=== PATIENT | female | born 1935 | race American Indian/Alaskan Native ===

== ENCOUNTER 2018-07-20 10:57 | Inpatient (IN) | payer MEDICARE ==
[2018-07-20 11:55] LABS: Basophils % (Auto) 0.4 % (0.0-1.8); Eosinophils % (Auto) 0.2 % (0.0-4.3); Hematocrit 34.1 % (30.3-42.9); Hemoglobin 11.2 gm/dl (10.1-14.3); Lymphocytes # (Auto) 0.7 K/mm3 (1.2-5.4); Lymphocytes % (Auto) 14.7 % (13.4-35.0); Mean Corpuscular HGB Conc 33 % (30-34); Mean Corpuscular Volume 90 fl (79-97); Monocytes # (Auto) 0.3 K/mm3 (0.0-0.8); Monocytes % (Auto) 5.3 % (0.0-7.3); Platelet Count 107 K/mm3 (140-440); Red Blood Count 3.77 M/mm3 (3.65-5.03); Red Cell Distribution Width 13.7 % (13.2-15.2)
[2018-07-20 12:03] LABS: INR 1.01 (0.87-1.13)
[2018-07-20 12:04] LABS: Partial Thromboplastin Time 20.7 Sec. (24.2-36.6)
[2018-07-20 12:09] LABS: Alanine Aminotransferase 12 units/L (7-56); Albumin 3.5 g/dL (3.9-5); BUN/Creatinine Ratio 14; Blood Urea Nitrogen 10 mg/dL (7-17); Hemolysis Index 13
--- NOTE | 2018-07-20 13:42 | Emergency Department Report ---
ED General Adult HPI - General Chief complaint: GI Bleed Stated complaint: RECTAL BLEEDING Time Seen by Provider: 07/20/18 11:21 Source: patient Mode of arrival: Ambulatory Limitations: No Limitations - History of Present Illness Initial comments: Patient presents to emergency department with a chief complaint of bright red blood per rectum that started this morning. Patient also complains of some left lower quadrant abdominal pain as well. Patient has a chest pain, shortness breath, or headache. -: Sudden Location: buttocks Radiation: non-radiation Severity scale (0 -10): 2 Quality: dull, constant Consistency: constant Improves with: none Worsens with: none Associated Symptoms: denies other symptoms Treatments Prior to Arrival: none - Related Data Allergies Allergy/AdvReac Type Severity Reaction Status Date / Time No Known Allergies Allergy Unverified 10/16/15 07:02 ED Review of Systems ROS: Stated complaint: RECTAL BLEEDING Other details as noted in HPI Comment: All other systems reviewed and negative Constitutional: denies: chills, fever Eyes: denies: eye pain, eye discharge, vision change ENT: denies: ear pain, throat pain Respiratory: denies: cough, shortness of breath, wheezing Cardiovascular: denies: chest pain, palpitations Endocrine: no symptoms reported Gastrointestinal: denies: abdominal pain, nausea, diarrhea Genitourinary: denies: urgency, dysuria, discharge Musculoskeletal: denies: back pain, joint swelling, arthralgia Skin: denies: rash, lesions Neurological: denies: headache, weakness, paresthesias Psychiatric: denies: anxiety, depression Hematological/Lymphatic: denies: easy bleeding, easy bruising ED Past Medical Hx - Past Medical History Previous Medical History?: Yes Hx Asthma: Yes - Surgical History Past Surgical History?: No - Social History Smoking Status: Never Smoker Substance Use Type: None ED Physical Exam - General Limitations: No Limitations General appearance: alert, in no apparent distress - Head Head exam: Present: atraumatic, normocephalic - Eye Eye exam: Present: normal appearance, PERRL, EOMI - ENT ENT exam: Present: mucous membranes moist - Neck Neck exam: Present: normal inspection - Respiratory Respiratory exam: Present: normal lung sounds bilaterally. Absent: respiratory distress, wheezes, rales - Cardiovascular Cardiovascular Exam: Present: regular rate, normal rhythm. Absent: systolic murmur, diastolic murmur, rubs, gallop - GI/Abdominal GI/Abdominal exam: Present: soft, normal bowel sounds. Absent: distended, tenderness - Rectal Rectal exam: Present: heme (+) stool, other (chaperoned by Nurse Roman Taveras; no hemorrhoids appreciated on exam) - Extremities Exam Extremities exam: Present: normal inspection - Back Exam Back exam: Present: normal inspection - Neurological Exam Neurological exam: Present: alert, oriented X3, CN II-XII intact. Absent: motor sensory deficit - Psychiatric Psychiatric exam: Present: normal affect, normal mood - Skin Skin exam: Present: warm, dry, intact, normal color. Absent: rash ED Course Vital Signs 07/20/18 11:07 Temperature 97.4 F L Pulse Rate 73 Respiratory 18 Rate Blood Pressure 116/64 O2 Sat by Pulse 100 Oximetry ED Medical Decision Making - Lab Data Result diagrams: 07/20/18 11:29 07/20/18 11:29 Lab Results 07/20/18 07/20/18 07/20/18 Range/Units 11:29 11:29 11:29 WBC 4.8 (4.5-11.0) K/mm3 RBC 3.77 (3.65-5.03) M/mm3 Hgb 11.2 (10.1-14.3) gm/dl Hct 34.1 (30.3-42.9) % MCV 90 (79-97) fl MCH 30 (28-32) pg MCHC 33 (30-34) % RDW 13.7 (13.2-15.2) % Plt Count 107 L (140-440) K/mm3 Lymph % (Auto) 14.7 (13.4-35.0) % [place] % (Auto) 5.3 (0.0-7.3) % Eos % (Auto) 0.2 (0.0-4.3) % Baso % (Auto) 0.4 (0.0-1.8) % Lymph # 0.7 L (1.2-5.4) K/mm3 [place] # 0.3 (0.0-0.8) K/mm3 Eos # 0.0 (0.0-0.4) K/mm3 Baso # 0.0 (0.0-0.1) K/mm3 Seg Neutrophils % 79.4 H (40.0-70.0) % Seg Neutrophils # 3.8 (1.8-7.7) K/mm3 PT 13.9 (12.2-14.9) Sec. INR 1.01 (0.87-1.13) APTT 20.7 L (24.2-36.6) Sec. Sodium 140 (137-145) mmol/L Potassium 3.9 (3.6-5.0) mmol/L Chloride 102.9 (98-107) mmol/L Carbon Dioxide 26 (22-30) mmol/L Anion Gap 15 mmol/L BUN 10 (7-17) mg/dL Creatinine 0.7 (0.7-1.2) mg/dL Estimated GFR > 60 ml/min BUN/Creatinine Ratio 14 % Glucose 143 H (65-100) mg/dL Calcium 9.0 (8.4-10.2) mg/dL Total Bilirubin 0.60 (0.1-1.2) mg/dL AST 19 (5-40) units/L ALT 12 (7-56) units/L Alkaline Phosphatase 87 (35-129) units/L Total Protein 6.1 L (6.3-8.2) g/dL Albumin 3.5 L (3.9-5) g/dL Albumin/Globulin Ratio 1.3 % Blood Type Antibody Screen 07/20/18 Range/Units 11:29 WBC (4.5-11.0) K/mm3 RBC (3.65-5.03) M/mm3 Hgb (10.1-14.3) gm/dl Hct (30.3-42.9) % MCV (79-97) fl MCH (28-32) pg MCHC (30-34) % RDW (13.2-15.2) % Plt Count (140-440) K/mm3 Lymph % (Auto) (13.4-35.0) % [place] % (Auto) (0.0-7.3) % Eos % (Auto) (0.0-4.3) % Baso % (Auto) (0.0-1.8) % Lymph # (1.2-5.4) K/mm3 [place] # (0.0-0.8) K/mm3 Eos # (0.0-0.4) K/mm3 Baso # (0.0-0.1) K/mm3 Seg Neutrophils % (40.0-70.0) % Seg Neutrophils # (1.8-7.7) K/mm3 PT (12.2-14.9) Sec. INR (0.87-1.13) APTT (24.2-36.6) Sec. Sodium (137-145) mmol/L Potassium (3.6-5.0) mmol/L Chloride (98-107) mmol/L Carbon Dioxide (22-30) mmol/L Anion Gap mmol/L BUN (7-17) mg/dL Creatinine (0.7-1.2) mg/dL Estimated GFR ml/min BUN/Creatinine Ratio % Glucose (65-100) mg/dL Calcium (8.4-10.2) mg/dL Total Bilirubin (0.1-1.2) mg/dL AST (5-40) units/L ALT (7-56) units/L Alkaline Phosphatase (35-129) units/L Total Protein (6.3-8.2) g/dL Albumin (3.9-5) g/dL Albumin/Globulin Ratio % Blood Type O POSITIVE Antibody Screen Negative - Medical Decision Making Discussed plan of care with patient Critical care attestation.: If time is entered above; I have spent that time in minutes in the direct care of this critically ill patient, excluding procedure time. ED Disposition Clinical Impression: GI bleed, Rectal bleeding Disposition: OP ADMIT IP TO THIS HOSP Is pt being admited?: No Does the pt Need Aspirin: No Condition: Fair Instructions: Gastrointestinal Bleeding (ED) Referrals: MARK NAPOLES MD [Primary Care Provider] - 3-5 Days
--- NOTE | 2018-07-20 13:46 | History and Physical Report ---
History of Present Illness Chief complaint: I keep bleeding when i go to the bathroom History of present illness: 83 YO Female with Asthma, Malnutrition presents to ED for evaluation. Pt states that she has experienced BRBPR over the past 1 day with persistent symptoms over the same time frame. Pt transported to [facility] by her family for further care and evaluation. Pt seen and evaluated in ED and found to have GI bleed. Pt denies fever, chills, CP, Palpitations, NV, productive cough, skin rash, or recent ill contacts. Pt admitted to [facility] unit. GI consulted in ED. Past History Past Medical History: other (Asthma, Malnutrition) Past Surgical History: No surgical history, Other (reviewed) Social history: single. denies: smoking, alcohol abuse, prescription drug abuse Family history: no significant family history (reviewed) Medications and Allergies Allergies Allergy/AdvReac Type Severity Reaction Status Date / Time No Known Allergies Allergy Unverified 10/16/15 07:02 Review of Systems Constitutional: no weight loss, no weight gain, no fever, no chills Ears, nose, mouth and throat: no ear pain, no ear discharge, no tinnitis, no decreased hearing Breasts: no change in shape, no swelling, no mass Cardiovascular: no chest pain, no orthopnea, no palpitations, no rapid/irregular heart beat, no edema Respiratory: no cough, no excessive sputum, no hemoptysis, no shortness of breath Gastrointestinal: diarrhea, BRBPR, no nausea, no vomiting, no change in bowel habits, no hematemesis, no loss of appetite Genitourinary Female: no pelvic pain, no flank pain, no menorrhagia, no urinary frequency, no urgency Rectal: no pain, no incontinence, no bleeding Musculoskeletal: no neck stiffness, no neck pain, no shooting arm pain, no arm numbness/tingling, no low back pain Integumentary: no rash, no pruritis, no redness, no sores, no jaundice Neurological: no transient paralysis, no paralysis, no weakness, no parathesias, no numbness, no tingling, no seizures Psychiatric: no anxiety, no memory loss, no change in sleep habits, no sleep disturbances Endocrine: no cold intolerance, no heat intolerance, no polyphagia, no excessive thirst, no polydipsia, no polyuria Hematologic/Lymphatic: no easy bruising, no easy bleeding, no lymphadenopathy, no lymphedema Allergic/Immunologic: no urticaria, no allergic rhinitis, no wheezing, no persistent infections, no angioedema Exam - Constitutional Vitals: Temp Pulse Resp BP Pulse Ox 97.4 F L 73 18 116/64 100 07/20/18 11:07 07/20/18 11:07 07/20/18 11:07 07/20/18 11:07 07/20/18 11:07 General appearance: Present: mild distress - EENT Eyes: Present: PERRL ENT: hearing intact, clear oral mucosa - Neck Neck: Present: supple, normal ROM - Respiratory Respiratory effort: normal Respiratory: bilateral: CTA - Cardiovascular Heart Sounds: Present: S1 & S2. Absent: rub, click - Extremities Extremities: pulses symmetrical, No edema Peripheral Pulses: within normal limits - Abdominal General gastrointestinal: Present: soft, non-tender, non-distended, normal bowel sounds Female genitourinary: Present: normal - Integumentary Integumentary: Present: clear, warm, dry - Musculoskeletal Musculoskeletal: gait normal, strength equal bilaterally - Psychiatric Psychiatric: appropriate mood/affect, intact judgment & insight - Neurologic Neurologic: CNII-XII intact, moves all extremities Results - Labs CBC & Chem 7: 07/20/18 11:29 07/20/18 11:29 Labs: Abnormal lab results 07/20/18 07/20/18 07/20/18 Range/Units 11:29 11:29 11:29 Plt Count 107 L (140-440) K/mm3 Lymph # 0.7 L (1.2-5.4) K/mm3 Seg Neutrophils % 79.4 H (40.0-70.0) % APTT 20.7 L (24.2-36.6) Sec. Glucose 143 H (65-100) mg/dL Total Protein 6.1 L (6.3-8.2) g/dL Albumin 3.5 L (3.9-5) g/dL Assessment and Plan - Patient Problems (1) GI bleed Current Visit: Yes Status: Acute Qualifiers: GI bleed type/associated pathology: anorectal hemorrhage Qualified Code(s): K62.5 - Hemorrhage of anus and rectum Plan to address problem: Admit to [facility] unit, Serial CBC, No transfusion at this time, hgb stable. PPI therapy, GI consulted in ED for endoscopy (2) DVT prophylaxis Current Visit: Yes Status: Acute Plan to address problem: SCD to BLE while in bed.
[2018-07-20] MEDS ORDERED: TYLENOL PO PRN (14:25)
[2018-07-20] MEDS ORDERED: ZOFRAN IV PRN (14:25)
[2018-07-20] MEDS ORDERED: PROVENTIL IH PRN (14:25)
[2018-07-20] MEDS ORDERED: SODIUM CHLORIDE FLUSH SYRINGE 10 ML IV PRN (14:25)
--- NOTE | 2018-07-20 15:02 | Cat Scan Report ---
FINAL REPORT PROCEDURE: CT ABDOMEN PELVIS WO CON TECHNIQUE: Computerized axial tomography of the abdomen and pelvis was performed without intravenous contrast. This study is performed without intravascular contrast material and its sensitivity for ab dominal and pelvic pathology, including neoplasms, inflammation, abscess, free fluid, thrombosis, art erial dissection and infarction, is reduced compared with a contrast enhanced study. HISTORY: rectal bleeding and abdminal pain COMPARISON: No prior studies are available for comparison. FINDINGS: Lower Lung harris: There are noncalcified nodular densities seen in the right lower lobe. Three appea r to be present, the largest measures 10.4 millimeters and has slightly spiculated margins. The other 2 measure 5.5 millimeters and 4 millimeters in size. There is an additional 3 millimeter noncalcifie d nodule anteriorly inferiorly in the right upper lobe. Minimal dependent atelectasis is visualized. Calcifications visualized in the coronary arteries indicating atherosclerotic disease. Upper Abdomen: There are multiple low-density nodules scattered in the liver. Without IV contrast the se are difficult to characterize. They may represent cysts. Other low-density nodules probably less l ikely. These measure up to 1.8 centimeters in size. The liver is otherwise unremarkable. There is inc reased density dependently in the gallbladder. I suspect there are multiple small layering gallstones . The gallbladder is otherwise unremarkable. The adrenal glands, the pancreas and the spleen are unre markable. Kidneys, Ureters and Urinary bladder: There is a nonobstructing 5 millimeter x 6 millimeter calculus in the lower 3rd of the left kidney. The kidneys, ureters and urinary bladder otherwise are unremarka ble. Retroperitoneum: Atherosclerotic changes are seen in the abdominal aorta. No aneurysm is visualized. Nonspecific subcentimeter lymph nodes are seen in the retroperitoneum. No pathologically enlarged lym ph nodes are identified. Bowel: There is moderate diverticulosis in the descending colon without evidence of diverticulitis. There is moderate diverticulosis in the hepatic flexure is well. There also appears to be mild diverticulosis in the region of the cecum. No inflammatory changes are seen in the right lower quadrant that would suggest appendicitis. Reproductive organs: Uterus is surgically absent. No abnormal adnexal masses are seen. Other: Degenerative changes visualized in the lumbar spine, thoracic spine and sacrum. No acute bony abnormalities are visualized. IMPRESSION: Moderate areas of diverticulosis seen in the colon as described above. I do not see definite evidence of diverticulitis. If clinically indicated nuclear medicine bleeding scan could be performed to eval uate the site of intestinal bleeding. Several noncalcified nodular densities are seen in the lung bases as described the largest measuring just over 1 centimeter. Malignancy cannot be excluded. Consider CT of the entire chest for further ev aluation. Atherosclerosis coronary arteries. Multiple low-density nodules seen in the liver as described. These may represent cysts although confi rmation with ultrasound would be helpful. Prior hysterectomy..
[2018-07-20] MEDS: PROTONIX IV SCH ×2 (16:01→22:52)
[2018-07-20] MEDS ORDERED: PROTONIX IV ONE (16:45)
[2018-07-20] MEDS: SODIUM CHLORIDE FLUSH SYRINGE 10 ML IV SCH (22:52)
[2018-07-21 06:02] LABS: Basophils % (Auto) 0.6 % (0.0-1.8); Eosinophils % (Auto) 0.7 % (0.0-4.3); Hematocrit 28.1 % (30.3-42.9); Hemoglobin 9.5 gm/dl (10.1-14.3); Lymphocytes # (Auto) 1.2 K/mm3 (1.2-5.4); Lymphocytes % (Auto) 35.7 % (13.4-35.0); Mean Corpuscular HGB Conc 34 % (30-34); Mean Corpuscular Volume 90 fl (79-97); Monocytes # (Auto) 0.3 K/mm3 (0.0-0.8); Platelet Count 100 K/mm3 (140-440); Red Blood Count 3.13 M/mm3 (3.65-5.03); Red Cell Distribution Width 13.9 % (13.2-15.2)
[2018-07-21] MEDS: SODIUM CHLORIDE FLUSH SYRINGE 10 ML IV SCH ×2 (09:24→22:25)
[2018-07-21] MEDS: PROTONIX IV SCH ×2 (09:24→22:24)
--- NOTE | 2018-07-21 10:11 | Gastroenterology Consultation ---
Addendum entered and electronically signed by MARCI GARCIA MD 07/21/18 16:13: Patient seen and examined on 07/21/2018. 83 yo female with prior h/o diverticular bleed admitted for rectal bleeding. No additional bleeding episode. Will monitor H/H and for any signs of recurrent bleeding. Original Note: History of Present Illness - Reason for Consult Consult date: 07/21/18 GI bleed Requesting physician: DEBRA ESCOBAR - History of Present Illness Patient is a 83 y/o female with PMH of GERD, HTN, anemia, and glaucoma who prese nted to ED with c/o rectal bleeding to which GI has been consulted. This morning patient was sitting up in bed eating breakfast w/o acute distress. She reports an acute on set of rectal bleeding yesterday with bright red blood x 2 episodes. No active signs of bleeding this am. No hematemesis or melena. Denies fever, CP, SOB, dizziness, wt loss, abd pain, N/V, diarrhea, or constipation. Patient is previously known to our service with a hx of recurrent diverticular bleeding requiring multiple hospitalizations in the past with last one being in 2017 at [facility]. She underwent a colonoscopy at that time by Dr. Durand that showed pancolonic diverticulosis and hemorrhoids. Had a pill cam in 2016 that showed a single small diverticulum in the mid to distal small bowel, otherwise normal. Past History Past Medical History: anemia, GERD, hypertension, other (Asthma, Malnutrition, glaucoma, recurrent diverticular bleeding ) Past Surgical History: No surgical history, Other Social history: single. denies: smoking, alcohol abuse, prescription drug abuse Family history: no significant family history (reviewed) Medications and Allergies Allergies Allergy/AdvReac Type Severity Reaction Status Date / Time No Known Allergies Allergy Unverified 10/16/15 07:02 Home Medications Medication Instructions Recorded Confirmed Last Taken Type Losartan Potassium [Cozaar] 50 mg PO DAILY 07/20/18 07/20/18 Unknown History Pantoprazole [Protonix] 40 mg PO BID 07/20/18 07/20/18 Unknown History Active Meds: Active Medications Acetaminophen (Tylenol) 650 mg PO Q4H PRN PRN Reason: Pain MILD(1-3)/Fever >100.5/RAI Albuterol (Proventil) 2.5 mg IH Q4HRT PRN PRN Reason: Shortness Of Breath Ondansetron HCl (Zofran) 4 mg IV Q8H PRN PRN Reason: Nausea And Vomiting Pantoprazole Sodium (Protonix) 40 mg IV BID [facility], [facility]1983 Last Admin: 07/21/18 09:24 Dose: 40 mg Documented by: Sodium Chloride (Sodium Chloride Flush Syringe 10 Ml) 10 ml IV BID [facility] Last Admin: 07/21/18 09:24 Dose: 10 ml Documented by: Sodium Chloride (Sodium Chloride Flush Syringe 10 Ml) 10 ml IV PRN PRN PRN Reason: LINE FLUSH medications reviewed/updated as required Review of Systems - Review of Systems All systems: negative Gastrointestinal: BRBPR Exam - Constitutional Vital Signs: Temp Pulse Resp BP Pulse Ox 98.0 F 61 18 129/62 100 07/21/18 05:49 07/21/18 05:49 07/21/18 08:37 07/21/18 05:49 07/21/18 05:49 General appearance: no acute distress - EENT Eyes: PERRL, EOM intact ENT: hearing intact - Respiratory Respiratory: bilateral: CTA - Cardiovascular Rhythm: regular Heart Sounds: Present: S1 & S2 - Gastrointestinal General gastrointestinal: Present: soft, non-tender, non-distended, normal bowel sounds - Neurologic Neurological: alert and oriented x3 - Labs CBC & Chem 7: 07/21/18 04:36 07/20/18 11:29 Lab Results: Laboratory Results - last 24 hr 07/20/18 07/20/18 07/20/18 11:29 11:29 11:29 WBC 4.8 RBC 3.77 Hgb 11.2 Hct 34.1 MCV 90 MCH 30 MCHC 33 RDW 13.7 Plt Count 107 L Lymph % (Auto) 14.7 [place] % (Auto) 5.3 Eos % (Auto) 0.2 Baso % (Auto) 0.4 Lymph # 0.7 L [place] # 0.3 Eos # 0.0 Baso # 0.0 Seg Neutrophils % 79.4 H Seg Neutrophils # 3.8 PT 13.9 INR 1.01 APTT 20.7 L Sodium 140 Potassium 3.9 Chloride 102.9 Carbon Dioxide 26 Anion Gap 15 BUN 10 Creatinine 0.7 Estimated GFR > 60 BUN/Creatinine Ratio 14 Glucose 143 H Calcium 9.0 Total Bilirubin 0.60 AST 19 ALT 12 Alkaline Phosphatase 87 Total Protein 6.1 L Albumin 3.5 L Albumin/Globulin Ratio 1.3 Blood Type Antibody Screen 07/20/18 07/21/18 11:29 04:36 WBC 3.4 L RBC 3.13 L Hgb 9.5 L Hct 28.1 L D MCV 90 MCH 30 MCHC 34 RDW 13.9 Plt Count 100 L Lymph % (Auto) 35.7 H [place] % (Auto) 9.0 H Eos % (Auto) 0.7 Baso % (Auto) 0.6 Lymph # 1.2 [place] # 0.3 Eos # 0.0 Baso # 0.0 Seg Neutrophils % 54.0 Seg Neutrophils # 1.9 PT INR APTT Sodium Potassium Chloride Carbon Dioxide Anion Gap BUN Creatinine Estimated GFR BUN/Creatinine Ratio Glucose Calcium Total Bilirubin AST ALT Alkaline Phosphatase Total Protein Albumin Albumin/Globulin Ratio Blood Type O POSITIVE Antibody Screen Negative Assessment and Plan 1.GI bleed 2.rectal bleeding 3.hx of recurrent diverticular bleeding -H/H 9.5/28.1 -continue to monitor H/H and transfuse as needed -patient reports an acute onset of rectal bleeding with bright red blood x 2 episodes yesterday. No hematemeis, melena, abd pain, or N/V. -currently HD stable with no active signs of bleeding today -last colonoscopy in 2016 at [facility] by Dr. Durand that showed pancolonic diverticulosis and hemorrhoids -pill cam in 2016 showed a single small diverticulum in the mid to distal small bowel, otherwise normal -etiology-likely diverticular in nature given history -no plans for a repeat colonoscopy at this time, recommend conservative management since bleeding seems to be resolving -recommend stat CTA vs bleeding scan if bleeding reoccurs -continue PPI and supportive care -if no further signs of bleeding and labs are stable in am, okay to be d/c per GI standpoint with f/u in clinic
--- NOTE | 2018-07-21 14:06 | Progress Note ---
Assessment and Plan Assessment and plan: GI bleed, probably diverticular bleed -No bleeding this a.m. -H/H stable, will monitor and transfuse as needed -cont Protonix -GI is not planning on further investigative testing. -CTA versus bleeding scan recommended if bleeding re-occurs HTN -controlled Disposition: For discharge in a.m. if H/H remain stable History Interval history: Pt has no new complaints. She has not had any rectal bleed this am. Hospitalist Physical - Constitutional Vitals: Temp Pulse Resp BP Pulse Ox 98.6 F 70 18 150/67 98 07/21/18 12:07 07/21/18 12:07 07/21/18 12:07 07/21/18 12:07 07/21/18 12:07 General appearance: Present: no acute distress - EENT Eyes: Present: PERRL, EOM intact ENT: hearing intact, clear oral mucosa - Neck Neck: Present: supple - Respiratory Respiratory effort: normal Respiratory: bilateral: CTA - Cardiovascular Rhythm: regular Heart Sounds: Present: S1 & S2 - Extremities Extremities: No edema - Abdominal General gastrointestinal: soft, non-tender, non-distended, normal bowel sounds - Neurologic Neurologic: CNII-XII intact Results - Labs CBC & Chem 7: 07/21/18 04:36 07/20/18 11:29 Labs: Laboratory Last Values WBC 3.4 K/mm3 (4.5-11.0) L 07/21/18 04:36 RBC 3.13 M/mm3 (3.65-5.03) L 07/21/18 04:36 Hgb 9.5 gm/dl (10.1-14.3) L 07/21/18 04:36 Hct 28.1 % (30.3-42.9) L D 07/21/18 04:36 MCV 90 fl (79-97) 07/21/18 04:36 MCH 30 pg (28-32) 07/21/18 04:36 MCHC 34 % (30-34) 07/21/18 04:36 RDW 13.9 % (13.2-15.2) 07/21/18 04:36 Plt Count 100 K/mm3 (140-440) L 07/21/18 04:36 Lymph % (Auto) 35.7 % (13.4-35.0) H 07/21/18 04:36 [place] % (Auto) 9.0 % (0.0-7.3) H 07/21/18 04:36 Eos % (Auto) 0.7 % (0.0-4.3) 07/21/18 04:36 Baso % (Auto) 0.6 % (0.0-1.8) 07/21/18 04:36 Lymph # 1.2 K/mm3 (1.2-5.4) 07/21/18 04:36 [place] # 0.3 K/mm3 (0.0-0.8) 07/21/18 04:36 Eos # 0.0 K/mm3 (0.0-0.4) 07/21/18 04:36 Baso # 0.0 K/mm3 (0.0-0.1) 07/21/18 04:36 Seg Neutrophils % 54.0 % (40.0-70.0) 07/21/18 04:36 Seg Neutrophils # 1.9 K/mm3 (1.8-7.7) 07/21/18 04:36 PT 13.9 Sec. (12.2-14.9) 07/20/18 11:29 INR 1.01 (0.87-1.13) 07/20/18 11:29 APTT 20.7 Sec. (24.2-36.6) L 07/20/18 11:29 Sodium 140 mmol/L (137-145) 07/20/18 11:29 Potassium 3.9 mmol/L (3.6-5.0) 07/20/18 11:29 Chloride 102.9 mmol/L (98-107) 07/20/18 11:29 Carbon Dioxide 26 mmol/L (22-30) 07/20/18 11:29 Anion Gap 15 mmol/L 07/20/18 11:29 BUN 10 mg/dL (7-17) 07/20/18 11:29 Creatinine 0.7 mg/dL (0.7-1.2) 07/20/18 11:29 Estimated GFR > 60 ml/min 07/20/18 11:29 BUN/Creatinine Ratio 14 % 07/20/18 11:29 Glucose 143 mg/dL (65-100) H 07/20/18 11:29 Calcium 9.0 mg/dL (8.4-10.2) 07/20/18 11:29 Total Bilirubin 0.60 mg/dL (0.1-1.2) 07/20/18 11:29 AST 19 units/L (5-40) 07/20/18 11:29 ALT 12 units/L (7-56) 07/20/18 11:29 Alkaline Phosphatase 87 units/L (35-129) 07/20/18 11:29 Total Protein 6.1 g/dL (6.3-8.2) L 07/20/18 11:29 Albumin 3.5 g/dL (3.9-5) L 07/20/18 11:29 Albumin/Globulin Ratio 1.3 % 07/20/18 11:29 Blood Type O POSITIVE 07/20/18 11:29 Antibody Screen Negative 07/20/18 11:29
[2018-07-22 06:34] LABS: Hematocrit 28.9 % (30.3-42.9); Hemoglobin 9.7 gm/dl (10.1-14.3); Mean Corpuscular HGB Conc 33 % (30-34); Mean Corpuscular Volume 90 fl (79-97); Red Blood Count 3.22 M/mm3 (3.65-5.03); Red Cell Distribution Width 13.9 % (13.2-15.2)
[2018-07-22 06:52] LABS: Platelet Count 95 K/mm3 (140-440)
[2018-07-22] MEDS ORDERED: FLUSH HEPARIN IV ONE (08:17)
--- NOTE | 2018-07-22 10:33 | Gastroenterology Progress Note ---
Addendum entered and electronically signed by MARCI GARCIA MD 07/22/18 15:12: Patient seen and examined on 07/22/2018. Agree with A/P as stated. Patient reports continued rectal bleeding overnight. H/H stable Bleeding scan was negative. May be old blood likely diverticular bleed. Monitor H/H. Will follow. Original Note: Assessment and Plan 1.GI bleed 2.rectal bleeding 3.hx of recurrent diverticular bleeding -H/H 9.7/28.9-stable -continue to monitor H/H and transfuse as needed -patient/nursing report multiple episodes of rectal bleeding overnight and this am -[place] [facility] [place] that showed pancolonic diverticulosis and hemorrhoids -pill cam in 2015 showed a single small diverticulum in the mid to distal small bowel, otherwise normal -etiology-likely diverticular in nature given history -clinically, patient is HD stable w/o abd pain or N/V. -repeat H/H -stat bleeding scan -if positive, recommend IR consult for possible embolization -continue PPI and supportive care -will follow Subjective Date of service: 07/22/18 Principal diagnosis: rectal bleeding Interval history: No acute distress. Reports multiple episodes of rectal bleeding overnight and this am. Denies abd pain or N/V. Objective - Constitutional Vitals: Temp Pulse Resp BP Pulse Ox 98.2 F 62 20 136/65 98 07/22/18 05:20 07/22/18 05:20 07/22/18 05:20 07/22/18 05:20 07/22/18 05:20 General appearance: no acute distress - Respiratory Respiratory: bilateral: CTA - Cardiovascular Rhythm: regular Heart Sounds: Present: S1 & S2 - Gastrointestinal General gastrointestinal: Present: soft, non-tender, non-distended, normal bowel sounds - Labs CBC & Chem 7: 07/22/18 05:55 07/20/18 11:29 Labs: Laboratory Results - last 24 hr 07/22/18 05:55 WBC 3.0 L RBC 3.22 L Hgb 9.7 L Hct 28.9 L MCV 90 MCH 30 MCHC 33 RDW 13.9 Plt Count 95 L
--- NOTE | 2018-07-22 11:25 | Nuclear Medicine Report ---
BLEEDING SCAN: History: Rectal bleeding, diverticulosis. Standard distribution of radiotracer is noted. No enteric activity to suggest gastrointestinal bleeding is noted. IMPRESSION: Normal bleeding scan. No evidence for active bleeding at the time of study.
[2018-07-22 11:43] LABS: Hematocrit 28.7 % (30.3-42.9); Hemoglobin 9.7 gm/dl (10.1-14.3)
[2018-07-22] MEDS: PROTONIX PO SCH ×2 (13:15→21:00)
[2018-07-22] MEDS: SODIUM CHLORIDE FLUSH SYRINGE 10 ML IV SCH ×2 (13:15→20:59)
--- NOTE | 2018-07-22 14:30 | Progress Note ---
Assessment and Plan Assessment and plan: GI bleed, probably diverticular bleed -recurrent rectal bleed this a.m. -cont Protonix -bleeding scan neg for active bleeding -GI following Anemia of acute loss -H/H stable, will monitor and transfuse as needed Mild protein calorie malnutrition evidenced by BMI of 19.7 and albumin of 3.5 -Dietitian consulted HTN -controlled Disposition: For discharge when cleared by GI History Interval history: Pt had another rectal bleed this morning Hospitalist Physical - Constitutional Vitals: Temp Pulse Resp BP Pulse Ox 98.2 F 62 20 136/65 98 07/22/18 05:20 07/22/18 05:20 07/22/18 05:20 07/22/18 05:20 07/22/18 05:20 General appearance: Present: no acute distress - EENT Eyes: Present: PERRL, EOM intact ENT: hearing intact, clear oral mucosa - Neck Neck: Present: supple - Respiratory Respiratory effort: normal Respiratory: bilateral: CTA - Cardiovascular Rhythm: regular Heart Sounds: Present: S1 & S2 - Extremities Extremities: No edema - Abdominal General gastrointestinal: soft, non-tender, non-distended, normal bowel sounds - Neurologic Neurologic: CNII-XII intact Results - Labs CBC & Chem 7: 07/22/18 09:35 07/20/18 11:29 Labs: Laboratory Last Values WBC 3.0 K/mm3 (4.5-11.0) L 07/22/18 05:55 RBC 3.22 M/mm3 (3.65-5.03) L 07/22/18 05:55 Hgb 9.7 gm/dl (10.1-14.3) L 07/22/18 09:35 Hct 28.7 % (30.3-42.9) L 07/22/18 09:35 MCV 90 fl (79-97) 07/22/18 05:55 MCH 30 pg (28-32) 07/22/18 05:55 MCHC 33 % (30-34) 07/22/18 05:55 RDW 13.9 % (13.2-15.2) 07/22/18 05:55 Plt Count 95 K/mm3 (140-440) L 07/22/18 05:55 Lymph % (Auto) 35.7 % (13.4-35.0) H 07/21/18 04:36 [place] % (Auto) 9.0 % (0.0-7.3) H 07/21/18 04:36 Eos % (Auto) 0.7 % (0.0-4.3) 07/21/18 04:36 Baso % (Auto) 0.6 % (0.0-1.8) 07/21/18 04:36 Lymph # 1.2 K/mm3 (1.2-5.4) 07/21/18 04:36 [place] # 0.3 K/mm3 (0.0-0.8) 07/21/18 04:36 Eos # 0.0 K/mm3 (0.0-0.4) 07/21/18 04:36 Baso # 0.0 K/mm3 (0.0-0.1) 07/21/18 04:36 Seg Neutrophils % 54.0 % (40.0-70.0) 07/21/18 04:36 Seg Neutrophils # 1.9 K/mm3 (1.8-7.7) 07/21/18 04:36 PT 13.9 Sec. (12.2-14.9) 07/20/18 11:29 INR 1.01 (0.87-1.13) 07/20/18 11:29 APTT 20.7 Sec. (24.2-36.6) L 07/20/18 11:29 Sodium 140 mmol/L (137-145) 07/20/18 11:29 Potassium 3.9 mmol/L (3.6-5.0) 07/20/18 11:29 Chloride 102.9 mmol/L (98-107) 07/20/18 11:29 Carbon Dioxide 26 mmol/L (22-30) 07/20/18 11:29 Anion Gap 15 mmol/L 07/20/18 11:29 BUN 10 mg/dL (7-17) 07/20/18 11:29 Creatinine 0.7 mg/dL (0.7-1.2) 07/20/18 11:29 Estimated GFR > 60 ml/min 07/20/18 11:29 BUN/Creatinine Ratio 14 % 07/20/18 11:29 Glucose 143 mg/dL (65-100) H 07/20/18 11:29 Calcium 9.0 mg/dL (8.4-10.2) 07/20/18 11:29 Total Bilirubin 0.60 mg/dL (0.1-1.2) 07/20/18 11:29 AST 19 units/L (5-40) 07/20/18 11:29 ALT 12 units/L (7-56) 07/20/18 11:29 Alkaline Phosphatase 87 units/L (35-129) 07/20/18 11:29 Total Protein 6.1 g/dL (6.3-8.2) L 07/20/18 11:29 Albumin 3.5 g/dL (3.9-5) L 07/20/18 11:29 Albumin/Globulin Ratio 1.3 % 07/20/18 11:29 Blood Type O POSITIVE 07/20/18 11:29 Antibody Screen Negative 07/20/18 11:29
[2018-07-23] MEDS: PROTONIX PO SCH ×2 (09:48→22:39)
[2018-07-23] MEDS: SODIUM CHLORIDE FLUSH SYRINGE 10 ML IV SCH ×2 (09:48→22:40)
[2018-07-23 12:35] LABS: Hematocrit 29.8 % (30.3-42.9); Hemoglobin 10.1 gm/dl (10.1-14.3); Mean Corpuscular HGB Conc 34 % (30-34); Mean Corpuscular Volume 91 fl (79-97); Platelet Count 111 K/mm3 (140-440); Red Blood Count 3.29 M/mm3 (3.65-5.03); Red Cell Distribution Width 13.9 % (13.2-15.2)
--- NOTE | 2018-07-23 12:44 | Event Note ---
Date: 07/23/18 Contacted regarding GI bleeding. GI bleeding scan negative. If rebleeds, consider repeating GI bleeding scan. Alternatively, could consider multiphase CT abdomen and pelvis (noncontrast, arterial, venous, delayed).
--- NOTE | 2018-07-23 13:06 | Gastroenterology Progress Note ---
Assessment and Plan 1. Hematochezia - neg bleeding scan; no signs of further bleeding last couple days with stable H/H. suspect diverticular bleed which has resolved. tolerating clears. can be discharged from gi stand point if no further bleeding today and labs stable. advance diet as tolerated. Subjective Date of service: 07/23/18 Principal diagnosis: rectal bleeding Interval history: pt seen and examined; no further bleeding episodes since yesterday morning (none overnight or today); H/H stable. pt tolerating liquids and denies abd pain Objective - Constitutional Vitals: Temp Pulse Resp BP Pulse Ox 98.3 F 68 20 136/63 98 07/23/18 05:11 07/23/18 05:11 07/23/18 05:11 07/23/18 05:11 07/23/18 05:11 General appearance: no acute distress - Respiratory Respiratory effort: normal Respiratory: bilateral: CTA - Cardiovascular Rhythm: regular Heart Sounds: Present: S1 & S2 - Gastrointestinal General gastrointestinal: Present: soft, non-tender, non-distended - Psychiatric Psychiatric: appropriate mood/affect - Labs CBC & Chem 7: 07/23/18 12:04 07/20/18 11:29 Labs: Laboratory Results - last 24 hr 07/23/18 12:04 WBC 4.2 L RBC 3.29 L Hgb 10.1 Hct 29.8 L MCV 91 MCH 31 MCHC 34 RDW 13.9 Plt Count 111 L
--- NOTE | 2018-07-23 14:24 | Progress Note ---
Assessment and Plan Assessment and plan: GI bleed, probably diverticular bleed -No reported bleeding today -cont Protonix -bleeding scan neg for active bleeding -GI recommended discharge if patient has no further bleeding today Anemia of acute loss -H/H stable -will monitor and transfuse as needed Mild protein calorie malnutrition -Dietitian following HTN -controlled Thrombocytopenia, probably chronic -Stable Disposition: For discharge in a.m. if clinically stable History Interval history: The patient reported no bleeding today. Hospitalist Physical - Constitutional Vitals: Temp Pulse Resp BP Pulse Ox 98.3 F 68 20 136/63 98 07/23/18 05:11 07/23/18 05:11 07/23/18 05:11 07/23/18 05:11 07/23/18 05:11 General appearance: Present: no acute distress - EENT Eyes: Present: PERRL, EOM intact ENT: hearing intact, clear oral mucosa - Neck Neck: Present: supple - Respiratory Respiratory effort: normal Respiratory: bilateral: CTA - Cardiovascular Rhythm: regular Heart Sounds: Present: S1 & S2 - Extremities Extremities: No edema - Abdominal General gastrointestinal: soft, non-tender, non-distended, normal bowel sounds - Neurologic Neurologic: CNII-XII intact Results - Labs CBC & Chem 7: 07/23/18 12:04 07/20/18 11:29 Labs: Laboratory Last Values WBC 4.2 K/mm3 (4.5-11.0) L 07/23/18 12:04 RBC 3.29 M/mm3 (3.65-5.03) L 07/23/18 12:04 Hgb 10.1 gm/dl (10.1-14.3) 07/23/18 12:04 Hct 29.8 % (30.3-42.9) L 07/23/18 12:04 MCV 91 fl (79-97) 07/23/18 12:04 MCH 31 pg (28-32) 07/23/18 12:04 MCHC 34 % (30-34) 07/23/18 12:04 RDW 13.9 % (13.2-15.2) 07/23/18 12:04 Plt Count 111 K/mm3 (140-440) L 07/23/18 12:04 Lymph % (Auto) 35.7 % (13.4-35.0) H 07/21/18 04:36 [place] % (Auto) 9.0 % (0.0-7.3) H 07/21/18 04:36 Eos % (Auto) 0.7 % (0.0-4.3) 07/21/18 04:36 Baso % (Auto) 0.6 % (0.0-1.8) 07/21/18 04:36 Lymph # 1.2 K/mm3 (1.2-5.4) 07/21/18 04:36 [place] # 0.3 K/mm3 (0.0-0.8) 07/21/18 04:36 Eos # 0.0 K/mm3 (0.0-0.4) 07/21/18 04:36 Baso # 0.0 K/mm3 (0.0-0.1) 07/21/18 04:36 Seg Neutrophils % 54.0 % (40.0-70.0) 07/21/18 04:36 Seg Neutrophils # 1.9 K/mm3 (1.8-7.7) 07/21/18 04:36 PT 13.9 Sec. (12.2-14.9) 07/20/18 11:29 INR 1.01 (0.87-1.13) 07/20/18 11:29 APTT 20.7 Sec. (24.2-36.6) L 07/20/18 11:29 Sodium 140 mmol/L (137-145) 07/20/18 11:29 Potassium 3.9 mmol/L (3.6-5.0) 07/20/18 11:29 Chloride 102.9 mmol/L (98-107) 07/20/18 11:29 Carbon Dioxide 26 mmol/L (22-30) 07/20/18 11:29 Anion Gap 15 mmol/L 07/20/18 11:29 BUN 10 mg/dL (7-17) 07/20/18 11:29 Creatinine 0.7 mg/dL (0.7-1.2) 07/20/18 11:29 Estimated GFR > 60 ml/min 07/20/18 11:29 BUN/Creatinine Ratio 14 % 07/20/18 11:29 Glucose 143 mg/dL (65-100) H 07/20/18 11:29 Calcium 9.0 mg/dL (8.4-10.2) 07/20/18 11:29 Total Bilirubin 0.60 mg/dL (0.1-1.2) 07/20/18 11:29 AST 19 units/L (5-40) 07/20/18 11:29 ALT 12 units/L (7-56) 07/20/18 11:29 Alkaline Phosphatase 87 units/L (35-129) 07/20/18 11:29 Total Protein 6.1 g/dL (6.3-8.2) L 07/20/18 11:29 Albumin 3.5 g/dL (3.9-5) L 07/20/18 11:29 Albumin/Globulin Ratio 1.3 % 07/20/18 11:29 Blood Type O POSITIVE 07/20/18 11:29 Antibody Screen Negative 07/20/18 11:29 Nutrition/Malnutrition Assess - Dietary Evaluation Nutrition/Malnutrition Findings: Nutrition Notes Start: 07/23/18 13:06 Freq: Status: Active Protocol: Document 07/23/18 13:06 CAMILLA (Rec: 07/23/18 13:15 CAMILLA [email or web address] [email or web address]) Nutrition Notes Need for Assessment generated from: MD Order Initial or Follow up Assessment Other Pertinent Diagnosis GIB Current Diet Cl liq Labs/Tests Reviewed Pertinent Medications Reviewed Height 5 ft 4 in Weight 45.8 kg [place] Body Weight (kg) 54.54 BMI 17.3 Weight change and time frame Current wt obtained from bed scale Weight Status Underweight Subjective/Other Information RD consulted for malnutrition. 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 MD reports no further bleeding. Will advance diet as tolerated. Pt tolerating cl liq diet. Burn Absent Trauma Absent #1 Nutrition Diagnosis Predicted suboptimal energy intake Etiology advanced age, GIB As Evidenced by Signs and Symptoms pt pleasantly confused at time of assessment; says she usually takes small bites of food; pt underweight Is patient on ventilator? No Is Patient Ambulatory and/or Out of Bed Yes REE-(Person-St. Jeor-ambulatory/OOB) [ 1160.900 NUTR.MSJOOB] Kcal/Kg value to use for calculation 35 Approximate Energy Requirements Using 1603 kcal/Kg Calculation Used for Recommendations Kcal/kg Additional Notes Pro needs 1.2-1.5g/k-69g/ day Fluid needs 1ml/kcal Nutrition Intervention Change Diet Order: Advance diet when medically feasible Goal #1 Continued PO tolerance Goal #2 Diet advancement to meet nutrient needs Goal #3 Wt maintenance and/or gain Anticipated Discharge Needs: Unable to determine at this time Follow-Up By: 07/25/18 Additional Comments F/u: diet advancement, need for ONS
[2018-07-24 07:51] LABS: Hematocrit 28.3 % (30.3-42.9); Hemoglobin 9.3 gm/dl (10.1-14.3)
[2018-07-24] MEDS: PROTONIX PO SCH (10:01)
[2018-07-24] MEDS: SODIUM CHLORIDE FLUSH SYRINGE 10 ML IV SCH (10:01)
--- NOTE | 2018-07-24 10:55 | Gastroenterology Progress Note ---
Assessment and Plan 1. Hematochezia - neg bleeding scan; H/H stable without further bleeding episodes for a couple days. likely resolved diverticular bleed. okay for d/c from gi stand point. will sign off, please call as needed. Subjective Date of service: 07/24/18 Principal diagnosis: rectal bleeding Interval history: pt seen and examined. no bleeding episodes since seen yesterday Objective - Constitutional Vitals: Temp Pulse Resp BP Pulse Ox 98.2 F 76 18 169/78 100 07/24/18 05:52 07/24/18 05:52 07/24/18 05:52 07/24/18 05:52 07/24/18 05:52 General appearance: no acute distress - Respiratory Respiratory effort: normal Respiratory: bilateral: CTA - Cardiovascular Rhythm: regular Heart Sounds: Present: S1 & S2 - Gastrointestinal General gastrointestinal: Present: soft, non-tender, non-distended - Psychiatric Psychiatric: appropriate mood/affect - Labs CBC & Chem 7: 07/24/18 06:52 07/20/18 11:29 Labs: Laboratory Results - last 24 hr 07/23/18 07/24/18 12:04 06:52 WBC 4.2 L RBC 3.29 L Hgb 10.1 9.3 L Hct 29.8 L 28.3 L MCV 91 MCH 31 MCHC 34 RDW 13.9 Plt Count 111 L
[2018-07-24 11:48] VITALS: BP 138/61
--- NOTE | 2018-07-26 01:47 | Discharge Summary ---
Providers - Providers Date of Admission: 07/20/18 14:29 Date of discharge: 07/24/18 Attending physician: COREEN MONREAL 07/20/18 14:51 Consult to Physician [CONS] Routine Comment: Consulting Provider: KENDRICK CHASE Physician Instructions: Reason For Exam: gi bleed 07/22/18 14:38 Consult to Dietitian/Nutrition [CONS] Routine Physician Instructions: Reason For Exam: Reason for Consult: Malnutrition Primary care physician: MARK NAPOLES MD Hospitalization Reason for admission: GI bleed, probably diverticular bleed Condition: Fair Pertinent studies: CT abdomen and pelvis: Diverticulosis without diverticulitis, Multiple liver cysts. Nodular densities in the lung bases GI bleed scan: Negative for active bleeding Procedures: None Hospital course: FINAL DISCHARGE DIAGNOSES: GI bleed, probably diverticular bleed Anemia of acute loss Mild protein calorie malnutrition HTN Thrombocytopenia, probably chronic Nodular densities in the lung bases Hospital course: Patient was admitted and her H&H were monitored closely. She was reviewed by the gastroenterology and no further invasive investigative testing was recommended. The next day, patient had a recurrent rectal bleed. Bleeding scan was done and it was reported as negative for active bleed. Nevertheless, her H&H remained stable. She was monitored for another 24 hours without any bleeding. Thereafter, she was deemed stable for discharge with clinic follow-up after clearance by the GI team. Of note, for the abdomen CT abdomen and pelvis which showed nodular densities, patient will be notified via phone since she was not informed of this finding during her hospitalization. She will be instructed to follow-up with her primary care physician for further evaluation with CT chest scan. Disposition: - TO HOME OR SELFCARE Time spent for discharge: 32 MINUTES Core Measure Documentation - Palliative Care Palliative Care/ Comfort Measures: Not Applicable - Core Measures Any of the following diagnoses?: none Exam - Constitutional Vitals: Temp Pulse Resp BP Pulse Ox 98.4 F 67 16 138/61 99 07/24/18 11:46 07/24/18 11:46 07/24/18 11:46 07/24/18 11:46 07/24/18 11:46 General appearance: Present: no acute distress, well-nourished - EENT Eyes: Present: PERRL, EOM intact ENT: hearing intact, clear oral mucosa - Neck Neck: Present: supple, normal ROM - Respiratory Respiratory effort: normal Respiratory: bilateral: CTA - Cardiovascular Rhythm: regular Heart Sounds: Present: S1 & S2. Absent: rub, click - Extremities Extremities: No edema Peripheral Pulses: within normal limits - Abdominal General gastrointestinal: Present: soft, non-tender, non-distended, normal bowel sounds - Integumentary Integumentary: Present: clear, warm, dry - Musculoskeletal Musculoskeletal: gait normal, strength equal bilaterally - Psychiatric Psychiatric: appropriate mood/affect, intact judgment & insight - Neurologic Neurologic: CNII-XII intact, moves all extremities Plan Follow up with: MARK NAPOLES MD [Primary Care Provider] - 3-5 Days Forms: Accompanied Note
== END 2018-07-24 16:45 | disposition home or self-care (01) | DRG 378 ==
LOC: ED 10:57 → 3A 14:29
PROVIDERS: ADMIT Internal Medicine; ATTEND Internal Medicine
DX: K57.31 Diverticulosis of large intestine without perforation or abscess with bleeding (principal); D62 Acute posthemorrhagic anemia; E44.1 Mild protein-calorie malnutrition; Z68.1 Body mass index [BMI] 19.9 or less, adult; I10 Essential (primary) hypertension; J45.909 Unspecified asthma, uncomplicated; K21.9 Gastro-esophageal reflux disease without esophagitis; H40.9 Unspecified glaucoma
CPT/HCPCS: 36415; 74176; 78278; 80053; 85014; 85018; 85025; 85027; 85610; 85730; 86850; 86900; 86901; G0378; A9560; C9113; J1642

== ENCOUNTER 2018-07-26 07:17 | Inpatient (IN) | payer MEDICARE ==
[2018-07-26 10:53] LABS: Basophils % (Auto) 1.2 % (0.0-1.8); Eosinophils % (Auto) 0.7 % (0.0-4.3); Hematocrit 27.6 % (30.3-42.9); Hemoglobin 9.3 gm/dl (10.1-14.3); Lymphocytes # (Auto) 1.2 K/mm3 (1.2-5.4); Lymphocytes % (Auto) 33.2 % (13.4-35.0); Mean Corpuscular HGB Conc 34 % (30-34); Mean Corpuscular Volume 90 fl (79-97); Monocytes # (Auto) 0.2 K/mm3 (0.0-0.8); Platelet Count 140 K/mm3 (140-440); Red Blood Count 3.06 M/mm3 (3.65-5.03); Red Cell Distribution Width 14.5 % (13.2-15.2)
[2018-07-26 11:03] LABS: INR 0.96 (0.87-1.13)
[2018-07-26 11:04] LABS: Partial Thromboplastin Time 25.6 Sec. (24.2-36.6)
[2018-07-26 11:13] LABS: Alanine Aminotransferase 12 units/L (7-56); Albumin 3.8 g/dL (3.9-5); BUN/Creatinine Ratio 13; Blood Urea Nitrogen 9 mg/dL (7-17); Calcium 9.3 mg/dL (8.4-10.2); Hemolysis Index 19
--- NOTE | 2018-07-26 13:46 | Emergency Department Report ---
ED GI Bleed HPI - General Chief complaint: GI Bleed Stated complaint: BLEEDING FROM RECTUM Time Seen by Provider: 07/26/18 12:37 Source: patient Mode of arrival: Ambulatory Limitations: No Limitations - History of Present Illness Initial comments: Ms. Jj is a pleasant 83-year-old female with previous history of GI bleed. She is briefly discharged 2 days ago after colonoscopy and nuclear scan workup. She has wang-diverticulosis according to consultation with my GI colleague Dipika. She denies pain. However she sees large amount of blood in stool. She has denies lightheadedness or dizziness. -: days(s) (several days) Quality: painless Consistency: constant Context: history of GI bleed Associated Symptoms: denies other symptoms - Related Data Home Medications Medication Instructions Recorded Confirmed Last Taken Losartan Potassium [Cozaar] 50 mg PO DAILY 07/20/18 07/20/18 Unknown Pantoprazole [Protonix TAB] 40 mg PO BID 07/20/18 07/20/18 Unknown Allergies Allergy/AdvReac Type Severity Reaction Status Date / Time No Known Allergies Allergy Verified 07/26/18 07:18 ED Review of Systems ROS: Stated complaint: BLEEDING FROM RECTUM Other details as noted in HPI Comment: All other systems reviewed and negative Constitutional: denies: fever, malaise Respiratory: denies: cough Cardiovascular: denies: chest pain ED Past Medical Hx - Past Medical History Previous Medical History?: Yes Hx Hypertension: Yes Hx Asthma: Yes - Social History Smoking Status: Never Smoker Substance Use Type: None - Medications Home Medications: Home Medications Medication Instructions Recorded Confirmed Last Taken Type Losartan Potassium [Cozaar] 50 mg PO DAILY 07/20/18 07/20/18 Unknown History Pantoprazole [Protonix TAB] 40 mg PO BID 07/20/18 07/20/18 Unknown History ED Physical Exam - General Limitations: No Limitations General appearance: alert, in no apparent distress - Head Head exam: Present: atraumatic, normocephalic - Eye Eye exam: Present: normal appearance - ENT ENT exam: Present: mucous membranes moist - Neck Neck exam: Present: normal inspection. Absent: tenderness, meningismus - Respiratory Respiratory exam: Present: normal lung sounds bilaterally. Absent: respiratory distress, wheezes, rales, rhonchi - Cardiovascular Cardiovascular Exam: Present: regular rate, normal rhythm, normal heart sounds. Absent: systolic murmur, diastolic murmur, rubs, gallop - GI/Abdominal GI/Abdominal exam: Present: soft, normal bowel sounds. Absent: distended, tenderness, guarding, rebound - Rectal Rectal exam: Present: heme (+) stool, other (purplish red thick stool) - Extremities Exam Extremities exam: Present: normal inspection - Back Exam Back exam: Present: normal inspection - Neurological Exam Neurological exam: Present: alert, oriented X3 - Psychiatric Psychiatric exam: Present: normal affect, normal mood - Skin Skin exam: Present: warm, dry, intact, normal color. Absent: rash ED Course Vital Signs 07/26/18 07:18 Temperature 97.9 F Pulse Rate 78 Respiratory 20 Rate Blood Pressure 124/70 O2 Sat by Pulse 100 Oximetry ED Medical Decision Making - Lab Data Result diagrams: 07/26/18 10:35 07/26/18 10:35 - Medical Decision Making Ms. Jj presents with recurrent GI bleed. With recent workup, diverticular bleeding is suspected. I consulted donor specialist group. Dipika Shields has agreed to see patient. Admitted to hospitalist service to trend H/H and possibly repeat nuclear med scan. She has had both recent colonoscopy and nuclear med scan. Critical care attestation.: If time is entered above; I have spent that time in minutes in the direct care of this critically ill patient, excluding procedure time. ED Disposition Clinical Impression: GI bleed, Lower GI bleed Disposition: OP ADMIT IP TO THIS HOSP Is pt being admited?: Yes Condition: Stable
--- NOTE | 2018-07-26 14:30 | Gastroenterology Consultation ---
History of Present Illness - Reason for Consult Consult date: 07/26/18 GI bleed Requesting physician: YAZ PARK - History of Present Illness Patient is a 83 y/o female who presented to ED with c/o recurrent rectal bleeding after being discharged 2 days ago for GI bleeding thought to be diverticular in nature to which GI has been consulted. Patient is well known to our service and has a hx of recurrent diverticular bleeding requiring multiple hospitalizations in the past with last colonoscopy in 2016 at [facility] by Dr. Durand showing pancolonic diverticulosis and hemorrhoids. She also underwent a pill camera in 2015 that showed a single small diverticulum in the mid to distal small bowel, otherwise normal. This afternoon, patient was resting on stretcher w/o acute distress and son at bedside. She reports 1 episode of rectal bleeding this am with bright red blood on TP and mixed with brown stool following a BM. No further episodes of bleeding today. No hematemesis or melena. Denies fever, CP, SOB, dizziness, wt loss, abd pain, N/V, diarrhea, or constipation. H/H on admission, stable compared to previous. PMH significant for GERD, HTN, asthma, anemia, and glaucoma. Past History Past Medical History: other (as per HPI) Past Surgical History: No surgical history Social history: denies: smoking, alcohol abuse Medications and Allergies Allergies Allergy/AdvReac Type Severity Reaction Status Date / Time No Known Allergies Allergy Verified 07/26/18 07:18 Home Medications Medication Instructions Recorded Confirmed Last Taken Type Losartan Potassium [Cozaar] 50 mg PO DAILY 07/20/18 07/26/18 Unknown History Pantoprazole [Protonix TAB] 40 mg PO BID 07/20/18 07/26/18 Unknown History Active Meds: medications reviewed/updated as required Review of Systems - Review of Systems All systems: negative Gastrointestinal: BRBPR Exam - Constitutional Vital Signs: Temp Pulse Resp BP Pulse Ox 98.6 F 66 14 143/67 98 07/26/18 13:57 07/26/18 13:57 07/26/18 13:57 07/26/18 13:57 07/26/18 13:57 General appearance: no acute distress - EENT Eyes: PERRL, EOM intact ENT: hearing intact - Respiratory Respiratory: bilateral: CTA - Cardiovascular Rhythm: regular Heart Sounds: Present: S1 & S2 - Gastrointestinal General gastrointestinal: Present: soft, non-tender, non-distended, normal bowel sounds - Neurologic Neurological: alert and oriented x3 - Labs CBC & Chem 7: 07/26/18 10:35 07/26/18 10:35 Lab Results: Laboratory Results - last 24 hr 07/26/18 07/26/18 07/26/18 10:35 10:35 10:35 WBC 3.6 L RBC 3.06 L Hgb 9.3 L Hct 27.6 L MCV 90 MCH 31 MCHC 34 RDW 14.5 Plt Count 140 Lymph % (Auto) 33.2 Gonzales % (Auto) 7.0 Eos % (Auto) 0.7 Baso % (Auto) 1.2 Lymph # 1.2 Gonzales # 0.2 Eos # 0.0 Baso # 0.0 Seg Neutrophils % 57.9 Seg Neutrophils # 2.1 PT 13.4 INR 0.96 APTT 25.6 Sodium 143 Potassium 4.2 Chloride 103.9 Carbon Dioxide 28 Anion Gap 15 BUN 9 Creatinine 0.7 Estimated GFR > 60 BUN/Creatinine Ratio 13 Glucose 99 Calcium 9.3 Total Bilirubin 0.30 AST 24 ALT 12 Alkaline Phosphatase 82 Total Protein 6.4 Albumin 3.8 L Albumin/Globulin Ratio 1.5 Lipase 29 Blood Type Antibody Screen 07/26/18 10:35 WBC RBC Hgb Hct MCV MCH MCHC RDW Plt Count Lymph % (Auto) Gonzales % (Auto) Eos % (Auto) Baso % (Auto) Lymph # Gonzales # Eos # Baso # Seg Neutrophils % Seg Neutrophils # PT INR APTT Sodium Potassium Chloride Carbon Dioxide Anion Gap BUN Creatinine Estimated GFR BUN/Creatinine Ratio Glucose Calcium Total Bilirubin AST ALT Alkaline Phosphatase Total Protein Albumin Albumin/Globulin Ratio Lipase Blood Type O POSITIVE Antibody Screen Negative Assessment and Plan 1.GI bleed/rectal bleeding 2.hx of recurrent diverticular bleeding (d/c 2 days ago after being hospitalized for GI bleed thought to be diverticular in nature) -H/H 9.3/27.6-stable compared to previous -continue to monitor H/H and transfuse as needed -reports 1 episode of rectal bleeding this am with bright red blood on TP and mixed with brown stool following a BM. No further episodes of bleeding so far today. No hematemesis or melena. -last colonoscopy in 2016 at [facility] by Dr. uDrand that showed pancolonic diverticulosis and hemorrhoids -pill cam in 2016 showed a single small diverticulum in the mid to distal small bowel, otherwise normal -bleeding scan 07/22/18 negative -etiology-bleeding is likely sequela vs anorectal in nature (hemorrhoids) -clinically, patient is HD stable w/o abd pain or N/V. -no plans for a repeat colonoscopy at this time -recommend CTA vs bleeding scan if bleeding reoccurs -continue PPI and supportive care -if no further signs of bleeding and labs are stable in am, okay to be d/c per GI standpoint with f/u in clinic
[2018-07-26] MEDS ORDERED: PROVENTIL IH PRN (14:40)
[2018-07-26] MEDS ORDERED: SODIUM CHLORIDE FLUSH SYRINGE 10 ML IV PRN (14:40)
--- NOTE | 2018-07-26 14:40 | History and Physical Report ---
History of Present Illness Chief complaint: I saw blood when i went to the toilet History of present illness: 83 YO Female with Diverticulosis, GERD, HTN, Anemia, Asthma, Malnutrition presents to ED for evaluation. Pt states that she found blood on the toilet paper after having a bowel movement. Pt recently dischaarged from hospital for GI Bleeding. Pt transported to [facility] for further care. Pt seen and evaluated in ED and found to have GI Bleeding. GI consulted in ED. Pt admitted to [facility] for further care. PT denies fever, chills, CP, Palpitations, NVD, hemoptysis, syncope, trauma, skin rash, or recent ill contacts. Past History Past Medical History: GERD, hypertension, other (Asthma glaucoma) Past Surgical History: Other (colonoscopy) Social history: single, lives with family. denies: smoking, alcohol abuse, prescription drug abuse Family history: no significant family history (reviewed) Medications and Allergies Allergies Allergy/AdvReac Type Severity Reaction Status Date / Time No Known Allergies Allergy Verified 07/26/18 07:18 Home Medications Medication Instructions Recorded Confirmed Last Taken Type Losartan Potassium [Cozaar] 50 mg PO DAILY 07/20/18 07/26/18 Unknown History Pantoprazole [Protonix TAB] 40 mg PO BID 07/20/18 07/26/18 Unknown History Review of Systems Constitutional: no weight gain, no fever, no chills Ears, nose, mouth and throat: no ear pain, no ear discharge, no tinnitis Breasts: no change in shape, no swelling, no mass Cardiovascular: no chest pain, no palpitations, no edema, no lightheadedness Respiratory: no cough, no excessive sputum, no shortness of breath Gastrointestinal: BRBPR, no abdominal pain, no nausea, no vomiting, no hematemesis Genitourinary Female: no pelvic pain, no flank pain, no urinary frequency Rectal: hemorrhoids, no incontinence, no itching Musculoskeletal: no neck pain, no arm numbness/tingling, no shooting leg pain Integumentary: no rash, no pruritis, no wounds Neurological: no transient paralysis, no weakness, no tingling, no syncope Psychiatric: no memory loss, no insomnia, no change in libido Endocrine: no heat intolerance, no polyphagia, no polydipsia Hematologic/Lymphatic: no easy bruising, no easy bleeding, no lymphadenopathy Exam - Constitutional Vitals: Temp Pulse Resp BP Pulse Ox 98.6 F 66 14 143/67 98 07/26/18 13:57 07/26/18 13:57 07/26/18 13:57 07/26/18 13:57 07/26/18 13:57 General appearance: Present: cachectic - EENT Eyes: Present: PERRL ENT: hearing intact, clear oral mucosa - Neck Neck: Present: supple, normal ROM - Respiratory Respiratory effort: normal Respiratory: bilateral: CTA - Cardiovascular Heart Sounds: Present: S1 & S2. Absent: rub, click - Extremities Extremities: pulses symmetrical, No edema Peripheral Pulses: within normal limits - Abdominal General gastrointestinal: Present: soft, non-tender, non-distended, normal bowel sounds Female genitourinary: Present: normal - Integumentary Integumentary: Present: clear, warm, dry - Musculoskeletal Musculoskeletal: gait normal, strength equal bilaterally - Psychiatric Psychiatric: appropriate mood/affect, intact judgment & insight - Neurologic Neurologic: CNII-XII intact, moves all extremities Results - Labs CBC & Chem 7: 07/27/18 04:02 07/27/18 04:02 Labs: Abnormal lab results 07/26/18 07/26/18 Range/Units 10:35 10:35 WBC 3.6 L (4.5-11.0) K/mm3 RBC 3.06 L (3.65-5.03) M/mm3 Hgb 9.3 L (10.1-14.3) gm/dl Hct 27.6 L (30.3-42.9) % Albumin 3.8 L (3.9-5) g/dL Assessment and Plan - Patient Problems (1) GI bleed Current Visit: Yes Status: Acute Qualifiers: GI bleed type/associated pathology: anorectal hemorrhage Plan to address problem: GI consulted, in ED, Admit to IMCU, serial cbc, PPI therapy, no PRBC transfusion at this time. (2) GERD (gastroesophageal reflux disease) Current Visit: Yes Status: Acute Qualifiers: Esophagitis presence: without esophagitis Qualified Code(s): K21.9 - Gastro-esophageal reflux disease without esophagitis Plan to address problem: PPI therapy (3) HTN (hypertension) Current Visit: Yes Status: Acute Qualifiers: Hypertension type: essential hypertension Qualified Code(s): I10 - Essential (primary) hypertension Plan to address problem: Monitor bp q shift, continue medical management (4) DVT prophylaxis Current Visit: No Status: Acute Plan to address problem: SCD to BLE while in bed
[2018-07-26] MEDS ORDERED: PROTONIX PO SCH (16:00)
[2018-07-26] MEDS: SODIUM CHLORIDE FLUSH SYRINGE 10 ML IV SCH (21:30)
[2018-07-27 04:35] LABS: Eosinophils % (Auto) 1.4 % (0.0-4.3); Hematocrit 26.5 % (30.3-42.9); Hemoglobin 8.9 gm/dl (10.1-14.3); Lymphocytes # (Auto) 1.2 K/mm3 (1.2-5.4); Lymphocytes % (Auto) 47.4 % (13.4-35.0); Mean Corpuscular HGB Conc 34 % (30-34); Mean Corpuscular Volume 91 fl (79-97); Monocytes # (Auto) 0.2 K/mm3 (0.0-0.8); Monocytes % (Auto) 8.8 % (0.0-7.3); Platelet Count 128 K/mm3 (140-440); Red Blood Count 2.92 M/mm3 (3.65-5.03); Red Cell Distribution Width 14.4 % (13.2-15.2)
[2018-07-27 04:55] LABS: BUN/Creatinine Ratio 11; Blood Urea Nitrogen 8 mg/dL (7-17); Hemolysis Index 6
--- NOTE | 2018-07-27 08:24 | Cat Scan Report ---
FINAL REPORT EXAM: CT CHEST WO CON HISTORY: lung nodular opacities per previous CT abdomen/pel TECHNIQUE: CT imaging obtained through the chest without contrast. Transaxial, Coronal and sagittal reformats are provided. PRIORS: CT abdomen and pelvis 07/20/2018 FINDINGS: The ascending aorta measures approximately 4.1 x 3.7 cm at the level of the main pulmonary artery on axial series 2, image 49. Heart size is normal. No pericardial effusion. Coronary artery disease is p resent. The descending thoracic aorta is slightly tortuous and normal in caliber. Scattered atherosclerosis. Evaluation of fine pulmonary parenchymal detail is partially compromised by respiratory motion. Right lung apex nodular scarring measures up to 13 millimeters on axial series 2, image 9 Right upper lung nodule with spiculated borders measures up to 7 millimeters on axial image 42 Round subpleural 5 millimeter nodule is present in the right lower lung on axial image 55 Right lower lung subpleural irregular nodule with spiculated borders measures up to 9 millimeters on axial image 81 A right middle lobe subpleural 3 millimeter nodule on axial series 2, image 78 There is a left lower lung 3 millimeters subpleural nodule on image 97 Imaged portion of the upper abdomen is remarkable for multiple hepatic low-density lesions The superficial soft tissues are unremarkable. No acute bony abnormality or worrisome osseous lesions identified. IMPRESSION: Several nodules in both lungs, some of which are spiculated and the largest of which measure around 1 centimeter in the right lung. Correlation with any relevant prior imaging is requested. If findings have not been previously documented, pulmonology consultation is suggested for consideration of short interval follow-up versus PET CT or tissue sampling. Ascending thoracic aortic aneurysm measures 4.1 cm at the level of the main pulmonary artery. Coronary artery disease.
[2018-07-27] MEDS: SODIUM CHLORIDE FLUSH SYRINGE 10 ML IV SCH ×2 (10:43→21:58)
[2018-07-27] MEDS ORDERED: GOLYTELY PO ONE (11:41)
--- NOTE | 2018-07-27 11:41 | Gastroenterology Progress Note ---
<AVERY MCINTYRE - Last Filed: 07/27/18 11:38> Assessment and Plan 1.GI bleed/rectal bleeding 2.hx of recurrent diverticular bleeding (d/c 2 days ago after being hospitalized for GI bleed thought to be diverticular in nature) -H/H 8.9/26.5-trending down -continue to monitor H/H and transfuse as needed -no active signs of bleeding overnight or this am -last colonoscopy in 2016 at [facility] [place] by Dr. Durand that showed pancolonic diverticu losis and hemorrhoids -pill cam in 2016 showed a single small diverticulum in the mid to distal small bowel, otherwise normal -bleeding scan 07/22/18 negative -etiology-likely diverticular vs anorectal in nature (hemorrhoids) -clinically, patient is HD stable w/o abd pain or N/V. -will schedule for colonoscopy in am -clear liquids today then NPO after MN -recommend CTA vs bleeding scan if overt bleeding develops -continue PPI and supportive care -will follow Subjective Date of service: 07/27/18 Principal diagnosis: GI bleed Interval history: No acute distress. No active signs of bleeding overnight or this am per patient/nursing. Objective - Constitutional Vitals: Temp Pulse Resp BP Pulse Ox 97.4 F L 72 16 141/68 96 07/26/18 18:33 07/27/18 09:19 07/27/18 09:19 07/27/18 09:19 07/27/18 09:19 General appearance: no acute distress - Respiratory Respiratory: bilateral: CTA - Cardiovascular Rhythm: regular Heart Sounds: Present: S1 & S2 - Gastrointestinal General gastrointestinal: Present: soft, non-tender, non-distended, normal bowel sounds - Labs CBC & Chem 7: 07/27/18 04:02 07/27/18 04:02 Labs: Laboratory Results - last 24 hr 07/27/18 07/27/18 04:02 04:02 WBC 2.6 L RBC 2.92 L Hgb 8.9 L Hct 26.5 L MCV 91 MCH 31 MCHC 34 RDW 14.4 Plt Count 128 L Lymph % (Auto) 47.4 H Leslie % (Auto) 8.8 H Eos % (Auto) 1.4 Baso % (Auto) 1.0 Lymph # 1.2 Leslie # 0.2 Eos # 0.0 Baso # 0.0 Seg Neutrophils % 41.4 Seg Neutrophils # 1.1 L Sodium 143 Potassium 4.5 Chloride 105.6 Carbon Dioxide 30 Anion Gap 12 BUN 8 Creatinine 0.7 Estimated GFR > 60 BUN/Creatinine Ratio 11 Glucose 87 Calcium 9.0 <[id number] Anastacia - Last Filed: 07/27/18 16:06> Assessment and Plan pt seen and examined. Agree with note above. will plan for colonoscopy tomorrow to help identify source (diverticular vs hemorrhoidal) and potential risk stratification given recurrence of bleeding/admissions. Objective - Constitutional Vitals: Temp Pulse Resp BP Pulse Ox 97.8 F 69 16 143/68 99 07/27/18 13:20 07/27/18 13:20 07/27/18 13:20 07/27/18 13:20 07/27/18 13:20 - Labs CBC & Chem 7: 07/27/18 04:02 07/27/18 04:02 Labs: Laboratory Results - last 24 hr 07/27/18 07/27/18 04:02 04:02 WBC 2.6 L RBC 2.92 L Hgb 8.9 L Hct 26.5 L MCV 91 MCH 31 MCHC 34 RDW 14.4 Plt Count 128 L Lymph % (Auto) 47.4 H Leslie % (Auto) 8.8 H Eos % (Auto) 1.4 Baso % (Auto) 1.0 Lymph # 1.2 Leslie # 0.2 Eos # 0.0 Baso # 0.0 Seg Neutrophils % 41.4 Seg Neutrophils # 1.1 L Sodium 143 Potassium 4.5 Chloride 105.6 Carbon Dioxide 30 Anion Gap 12 BUN 8 Creatinine 0.7 Estimated GFR > 60 BUN/Creatinine Ratio 11 Glucose 87 Calcium 9.0
[2018-07-27] MEDS: PERCOCET 5/325 PO PRN ×2 (14:00→18:18)
--- NOTE | 2018-07-28 00:10 | Progress Note ---
Assessment and Plan Assessment and plan: 1) GI bleed Current Visit: Yes Status: Acute Qualifiers: GI bleed type/associated pathology: anorectal hemorrhage Plan to address problem: GI consulted, in ED, Admit to IMCU, serial cbc, PPI therapy, no PRBC transfusion at this time. (2) GERD (gastroesophageal reflux disease) Current Visit: Yes Status: Acute Qualifiers: Esophagitis presence: without esophagitis Qualified Code(s): K21.9 - Gastro-esophageal reflux disease without esophagitis Plan to address problem: PPI therapy (3) HTN (hypertension) Current Visit: Yes Status: Acute Qualifiers: Hypertension type: essential hypertension Qualified Code(s): I10 - Essential (primary) hypertension Plan to address problem: Monitor bp q shift, continue medical management (4) DVT prophylaxis Current Visit: No Status: Acute Plan to address problem: SCD to BLE while in bed History Interval history: patient seen and examined no new episodes of bleeding no new complaints. Vital signs reviewed Hospitalist Physical - Constitutional Vitals: Temp Pulse Resp BP Pulse Ox 97.7 F 68 20 163/78 100 07/27/18 17:42 07/27/18 21:34 07/27/18 21:34 07/27/18 21:34 07/27/18 21:34 General appearance: Present: no acute distress, well-nourished, cachectic - EENT Eyes: Present: PERRL, EOM intact - Neck Neck: Present: supple, normal ROM - Respiratory Respiratory effort: normal Respiratory: bilateral: diminished, negative: rales, rhonchi, wheezing - Cardiovascular Rhythm: regular Heart Sounds: Present: S1 & S2 - Extremities Extremities: no ischemia, pulses intact - Abdominal General gastrointestinal: soft, non-tender, non-distended, normal bowel sounds - Integumentary Integumentary: Present: clear, warm - Psychiatric Psychiatric: appropriate mood/affect, cooperative - Neurologic Neurologic: moves all extremities Results - Labs CBC & Chem 7: 07/29/18 05:23 07/27/18 04:02 Labs: Laboratory Last Values WBC 2.6 K/mm3 (4.5-11.0) L 07/27/18 04:02 RBC 2.92 M/mm3 (3.65-5.03) L 07/27/18 04:02 Hgb 8.9 gm/dl (10.1-14.3) L 07/27/18 04:02 Hct 26.5 % (30.3-42.9) L 07/27/18 04:02 MCV 91 fl (79-97) 07/27/18 04:02 MCH 31 pg (28-32) 07/27/18 04:02 MCHC 34 % (30-34) 07/27/18 04:02 RDW 14.4 % (13.2-15.2) 07/27/18 04:02 Plt Count 128 K/mm3 (140-440) L 07/27/18 04:02 Lymph % (Auto) 47.4 % (13.4-35.0) H 07/27/18 04:02 [place] % (Auto) 8.8 % (0.0-7.3) H 07/27/18 04:02 Eos % (Auto) 1.4 % (0.0-4.3) 07/27/18 04:02 Baso % (Auto) 1.0 % (0.0-1.8) 07/27/18 04:02 Lymph # 1.2 K/mm3 (1.2-5.4) 07/27/18 04:02 [place] # 0.2 K/mm3 (0.0-0.8) 07/27/18 04:02 Eos # 0.0 K/mm3 (0.0-0.4) 07/27/18 04:02 Baso # 0.0 K/mm3 (0.0-0.1) 07/27/18 04:02 Seg Neutrophils % 41.4 % (40.0-70.0) 07/27/18 04:02 Seg Neutrophils # 1.1 K/mm3 (1.8-7.7) L 07/27/18 04:02 PT 13.4 Sec. (12.2-14.9) 07/26/18 10:35 INR 0.96 (0.87-1.13) 07/26/18 10:35 APTT 25.6 Sec. (24.2-36.6) 07/26/18 10:35 Sodium 143 mmol/L (137-145) 07/27/18 04:02 Potassium 4.5 mmol/L (3.6-5.0) 07/27/18 04:02 Chloride 105.6 mmol/L (98-107) 07/27/18 04:02 Carbon Dioxide 30 mmol/L (22-30) 07/27/18 04:02 Anion Gap 12 mmol/L 07/27/18 04:02 BUN 8 mg/dL (7-17) 07/27/18 04:02 Creatinine 0.7 mg/dL (0.7-1.2) 07/27/18 04:02 Estimated GFR > 60 ml/min 07/27/18 04:02 BUN/Creatinine Ratio 11 % 07/27/18 04:02 Glucose 87 mg/dL (65-100) 07/27/18 04:02 Calcium 9.0 mg/dL (8.4-10.2) 07/27/18 04:02 Total Bilirubin 0.30 mg/dL (0.1-1.2) 07/26/18 10:35 AST 24 units/L (5-40) 07/26/18 10:35 ALT 12 units/L (7-56) 07/26/18 10:35 Alkaline Phosphatase 82 units/L (35-129) 07/26/18 10:35 Total Protein 6.4 g/dL (6.3-8.2) 07/26/18 10:35 Albumin 3.8 g/dL (3.9-5) L 07/26/18 10:35 Albumin/Globulin Ratio 1.5 % 07/26/18 10:35 Lipase 29 units/L (13-60) 07/26/18 10:35 Blood Type O POSITIVE 07/26/18 10:35 Antibody Screen Negative 07/26/18 10:35
[2018-07-28 05:37] LABS: Basophils % (Auto) 0.7 % (0.0-1.8); Eosinophils # (Auto) 0.1 K/mm3 (0.0-0.4); Eosinophils % (Auto) 1.6 % (0.0-4.3); Hematocrit 25.5 % (30.3-42.9); Hemoglobin 8.6 gm/dl (10.1-14.3); Lymphocytes # (Auto) 1.2 K/mm3 (1.2-5.4); Lymphocytes % (Auto) 34.2 % (13.4-35.0); Mean Corpuscular HGB Conc 34 % (30-34); Mean Corpuscular Volume 91 fl (79-97); Monocytes # (Auto) 0.4 K/mm3 (0.0-0.8); Monocytes % (Auto) 11.2 % (0.0-7.3); Platelet Count 121 K/mm3 (140-440); Red Blood Count 2.81 M/mm3 (3.65-5.03); Red Cell Distribution Width 14.3 % (13.2-15.2)
[2018-07-28] MEDS: SODIUM CHLORIDE FLUSH SYRINGE 10 ML IV SCH ×2 (09:19→21:04)
[2018-07-28] MEDS ORDERED: NACL 0.9% 1000 ML 1,000 ML IV SCH (12:00)
[2018-07-28] MEDS ORDERED: WATER FOR IRRIG STERILE IR ONE (12:08)
[2018-07-28] MEDS ORDERED: DIPRIVAN 10 MG/ML IV ONE (12:45)
--- NOTE | 2018-07-28 13:12 | Operative Report ---
Operative Report Operative Report: Colonoscopy Procedure Note Date of procedure: 07/28/2018 Endoscopist: Arturo Diaz Pre-op diagnosis/indication: Hematochezia, GI bleed Post-op diagnosis: Campbell-diverticulosis, internal hemorrhoids MEDICATIONS: MAC COMPLICATIONS: No immediate complications ESTIMATED BLOOD LOSS: none DESCRIPTION OF PROCEDURE: After consent was obtained, the patient was placed in the left lateral decubitis position. The fujinon colonoscope was inserted into the rectum under direct vision, and advanced to the cecum without difficulty. The quality of prep was fair/adequate. The patient tolerated the procedure well. The patient's vital signs were monitored continuously throughout the procedure. FINDINGS: There were multiple medium and large sized diverticula throughout the colon. Internal hemorrhoids were visualized on retroflexion view. There was no blood seen throughout the colon or high risk bleeding lesions. IMPRESSION: 1. Campbell-diverticulosis 2. Internal hemorrhoids No blood or high risk bleeding lesions were seen during the procedure. Unclear etiology of recurrent bleeding episodes, suspect hemorrhoidal during recent event given minor bleeding. RECOMMENDATIONS: -high fiber diet daily -okay to d/c from GI stand point Will sign off, please call as needed
--- NOTE | 2018-07-28 15:09 | Anesthesia Day of Surgery ---
Anesthesia Day of Surgery - Day of Surgery Patient Examined: Yes Patient H&P Reviewed: Yes Patient is NPO: Yes Beta Blockers: No Cardiac Clearance: No Pulmonary Clearance: No
--- NOTE | 2018-07-28 15:11 | Anesthesia Consultation ---
Anesthesia Consult and Med Hx Date of service: 07/28/18 - Airway Anesthetic Teeth Evaluation: Good ROM Head & Neck: Adequate Mental/Hyoid Distance: Adequate Mallampati Class: Class III Intubation Access Assessment: Good - Pulmonary Exam CTA: Yes - Cardiac Exam Cardiac Exam: No Murmur - Pre-Operative Health Status ASA Pre-Surgery Classification: ASA3 - Pulmonary Hx Asthma: Yes - Cardiovascular System Hx Hypertension: Yes - Other Systems Hx Cancer: No
--- NOTE | 2018-07-28 20:02 | Progress Note ---
Assessment and Plan Assessment and plan: --GI bleed Current Visit: Yes Status: Acute Qualifiers: GI bleed type/associated pathology: anorectal hemorrhage Plan to address problem: GI evaluated the patient , EGD today Closely monitor H&H and transfuse as needed -- GERD (gastroesophageal reflux disease) Current Visit: Yes Status: Acute Qualifiers: Esophagitis presence: without esophagitis Qualified Code(s): K21.9 - Gastro-esophageal reflux disease without esophagitis Plan to address problem: PPI therapy supportive care -- HTN (hypertension) Current Visit: Yes Status: Acute Qualifiers: Hypertension type: essential hypertension Qualified Code(s): I10 - Essential (primary) hypertension Plan to address problem: Continue current antihypertensives and when necessary medications -- DVT prophylaxis Current Visit: No Status: Acute Plan to address problem: SCD to BLE while in bed History Interval history: Sincerely and examined medical records reviewed Scheduled for EGD today Objective he was extubated No new episodes of bleeding Alert awake oriented 3 Vital signs noted Hospitalist Physical - Constitutional Vitals: Temp Pulse Resp BP Pulse Ox 98.4 F 77 18 114/55 99 07/28/18 15:56 07/28/18 15:56 07/28/18 15:56 07/28/18 15:56 07/28/18 15:56 General appearance: Present: no acute distress, cachectic, disheveled - EENT Eyes: Present: PERRL, EOM intact - Neck Neck: Present: supple, normal ROM - Respiratory Respiratory effort: normal Respiratory: bilateral: diminished, negative: rales, rhonchi, wheezing - Cardiovascular Rhythm: regular Heart Sounds: Present: S1 & S2 - Extremities Extremities: no ischemia, No edema - Abdominal General gastrointestinal: soft, non-tender, non-distended, normal bowel sounds - Integumentary Integumentary: Present: clear, warm - Psychiatric Psychiatric: appropriate mood/affect, cooperative - Neurologic Neurologic: CNII-XII intact, moves all extremities Results - Labs CBC & Chem 7: 07/28/18 04:43 07/27/18 04:02 Labs: Laboratory Last Values WBC 3.4 K/mm3 (4.5-11.0) L 07/28/18 04:43 RBC 2.81 M/mm3 (3.65-5.03) L 07/28/18 04:43 Hgb 8.6 gm/dl (10.1-14.3) L 07/28/18 04:43 Hct 25.5 % (30.3-42.9) L 07/28/18 04:43 MCV 91 fl (79-97) 07/28/18 04:43 MCH 31 pg (28-32) 07/28/18 04:43 MCHC 34 % (30-34) 07/28/18 04:43 RDW 14.3 % (13.2-15.2) 07/28/18 04:43 Plt Count 121 K/mm3 (140-440) L 07/28/18 04:43 Lymph % (Auto) 34.2 % (13.4-35.0) 07/28/18 04:43 [place] % (Auto) 11.2 % (0.0-7.3) H 07/28/18 04:43 Eos % (Auto) 1.6 % (0.0-4.3) 07/28/18 04:43 Baso % (Auto) 0.7 % (0.0-1.8) 07/28/18 04:43 Lymph # 1.2 K/mm3 (1.2-5.4) 07/28/18 04:43 [place] # 0.4 K/mm3 (0.0-0.8) 07/28/18 04:43 Eos # 0.1 K/mm3 (0.0-0.4) 07/28/18 04:43 Baso # 0.0 K/mm3 (0.0-0.1) 07/28/18 04:43 Seg Neutrophils % 52.3 % (40.0-70.0) 07/28/18 04:43 Seg Neutrophils # 1.8 K/mm3 (1.8-7.7) 07/28/18 04:43 PT 13.4 Sec. (12.2-14.9) 07/26/18 10:35 INR 0.96 (0.87-1.13) 07/26/18 10:35 APTT 25.6 Sec. (24.2-36.6) 07/26/18 10:35 Sodium 143 mmol/L (137-145) 07/27/18 04:02 Potassium 4.5 mmol/L (3.6-5.0) 07/27/18 04:02 Chloride 105.6 mmol/L (98-107) 07/27/18 04:02 Carbon Dioxide 30 mmol/L (22-30) 07/27/18 04:02 Anion Gap 12 mmol/L 07/27/18 04:02 BUN 8 mg/dL (7-17) 07/27/18 04:02 Creatinine 0.7 mg/dL (0.7-1.2) 07/27/18 04:02 Estimated GFR > 60 ml/min 07/27/18 04:02 BUN/Creatinine Ratio 11 % 07/27/18 04:02 Glucose 87 mg/dL (65-100) 07/27/18 04:02 Calcium 9.0 mg/dL (8.4-10.2) 07/27/18 04:02 Total Bilirubin 0.30 mg/dL (0.1-1.2) 07/26/18 10:35 AST 24 units/L (5-40) 07/26/18 10:35 ALT 12 units/L (7-56) 07/26/18 10:35 Alkaline Phosphatase 82 units/L (35-129) 07/26/18 10:35 Total Protein 6.4 g/dL (6.3-8.2) 07/26/18 10:35 Albumin 3.8 g/dL (3.9-5) L 07/26/18 10:35 Albumin/Globulin Ratio 1.5 % 07/26/18 10:35 Lipase 29 units/L (13-60) 07/26/18 10:35 Blood Type O POSITIVE 07/26/18 10:35 Antibody Screen Negative 07/26/18 10:35 Nutrition/Malnutrition Assess - Dietary Evaluation Nutrition/Malnutrition Findings: Nutrition Notes Start: 07/28/18 13:50 Freq: Status: Active Protocol: Document 07/28/18 13:50 KH (Rec: 07/28/18 13:57 [email or web address]) Co-Sign 07/28/18 13:50 RM Nutrition Notes Need for Assessment generated from: Low BMI Initial or Follow up Brief Note Current Diagnosis Hypertension Other Pertinent Diagnosis GERD, wang-diverticulosis, GI bleed Current Diet NPO Subjective/Other Information Pt screened for low BMI. Office Services Specialist unable to se pt. both in the AM and PM. Per nurse note, pt. recieving colonoscopy. Nutrition Intervention Follow-Up By: 07/29/18 Additional Comments F/u for nutrition assessment
[2018-07-29 06:09] LABS: Basophils % (Auto) 0.7 % (0.0-1.8); Eosinophils # (Auto) 0.1 K/mm3 (0.0-0.4); Eosinophils % (Auto) 1.7 % (0.0-4.3); Hemoglobin 9.1 gm/dl (10.1-14.3); Lymphocytes # (Auto) 1.1 K/mm3 (1.2-5.4); Mean Corpuscular HGB Conc 34 % (30-34); Mean Corpuscular Volume 91 fl (79-97); Monocytes # (Auto) 0.2 K/mm3 (0.0-0.8); Platelet Count 142 K/mm3 (140-440); Red Blood Count 2.97 M/mm3 (3.65-5.03); Red Cell Distribution Width 14.5 % (13.2-15.2)
--- NOTE | 2018-07-29 09:56 | Discharge Summary ---
Providers - Providers Date of Admission: 07/26/18 14:40 Date of discharge: 07/29/18 Attending physician: MIREYA ROSSI 07/26/18 13:48 Consult to Physician [CONS] Stat Comment: Dr. Diaz notified @ 13:38- [facility] Consulting Provider: EDMUNDO DIAZ Physician Instructions: Reason For Exam: GI bleed Primary care physician: SELMA MIGUEL, [employer] ENGINE[employer] Hospitalization Reason for admission: Rectal bleeding Condition: Stable Pertinent studies: CT chest: Procedures: Colonoscopy: Wang-diverticulosis Internal hemorrhoids RECOMMENDATIONS: -high fiber diet daily -okay to d/c from GI stand point Hospital course: 83 YO Female with Diverticulosis, GERD, HTN, Anemia, Asthma, Malnutrition was admitted through ER with rectal bleeding. Symptomatically managed and was evaluated by GI had colonoscopy which revealed wang diverticulosis and int hemorrhoids. GI advised stool sftners.Today patient is comfortable,no new complaints,vital signs stable physical exam no new changes.Patient and family advised to f/u PMD,GI for further evaluation of nodular sdensities in lung and liver. Patient is stable at discharge. Discharge Diagnosis: --Rectal Bleeding/Internal hemorrhoids: Resolved,s/p colonoscopy. adv stool softners --GERD: protonix --Hypertension:moderate control Cont current antihypertensives and PRN meds --Nodular densities lung and liver: Further evaluation as out pt by PMD and GI --DVT prophylaxis: SCD,no pharmacologic anti coagulants due to GI bleeding Disposition: - TO HOME OR SELFCARE Time spent for discharge: 31 min Core Measure Documentation - Palliative Care Palliative Care/ Comfort Measures: Not Applicable - Core Measures Any of the following diagnoses?: none Exam - Constitutional Vitals: Temp Pulse Resp BP Pulse Ox 98.9 F 61 18 133/57 97 07/29/18 08:33 07/29/18 06:23 07/29/18 04:19 07/29/18 04:19 07/29/18 04:19 General appearance: Present: no acute distress, well-nourished - EENT Eyes: Present: PERRL, EOM intact - Neck Neck: Present: supple, normal ROM - Respiratory Respiratory effort: normal Respiratory: bilateral: diminished, negative: rales, rhonchi, wheezing - Cardiovascular Rhythm: regular Heart Sounds: Present: S1 & S2 - Extremities Extremities: no ischemia, No edema - Abdominal General gastrointestinal: Present: soft, non-tender, non-distended, normal bowel sounds - Integumentary Integumentary: Present: clear, warm - Musculoskeletal Musculoskeletal: strength equal bilaterally - Psychiatric Psychiatric: appropriate mood/affect, cooperative - Neurologic Neurologic: CNII-XII intact, moves all extremities Plan Activity: advance as tolerated, fall precautions Diet: regular Additional Instructions: If you notice any new episodes of bleeding contact M.D. or go to emergency room Follow up with: SELMA MIGUEL, SUPPLIER ENGINEER-C [Primary Care Provider] - 7 Days EDMUNDO DIAZ MD [Staff Physician] - 7 Days Prescriptions: Docusate Sodium [Colace] 100 mg PO BID PRN #20 capsule PRN Reason: Constipation Pantoprazole [Protonix TAB] 40 mg PO BID #30 tablet
[2018-07-29] MEDS: SODIUM CHLORIDE FLUSH SYRINGE 10 ML IV SCH (10:18)
[2018-07-29 12:57] VITALS: BP 149/63
== END 2018-07-29 15:59 | disposition home or self-care (01) | DRG 378 ==
LOC: ED 07:17 → IMCU 14:40 → 4A 07-27 10:08
PROVIDERS: ADMIT Internal Medicine; ATTEND Internal Medicine
PROC: 0DJD8ZZ Inspection of Lower Intestinal Tract, Via Natural or Artificial Opening Endoscopic (ICD-10-PCS; principal; 2018-07-28)
DX: K57.91 Diverticulosis of intestine, part unspecified, without perforation or abscess with bleeding (principal); E46 Unspecified protein-calorie malnutrition; Z68.1 Body mass index [BMI] 19.9 or less, adult; J45.909 Unspecified asthma, uncomplicated; I10 Essential (primary) hypertension; K64.8 Other hemorrhoids; K21.9 Gastro-esophageal reflux disease without esophagitis; Z79.899 Other long term (current) drug therapy
CPT/HCPCS: 36415; 71250; 80048; 80053; 83690; 85025; 85610; 85730; 86850; 86900; 86901; G0378; J2704; J7030

== ENCOUNTER 2019-01-02 06:53 | Outpatient (CLI) | payer MEDICARE ==
[2019-01-02 07:55] LABS: Blood Urea Nitrogen 6 mg/dL (7-17)
--- NOTE | 2019-01-02 10:44 | Cat Scan Report ---
CT CHEST WITH CONTRAST INDICATION / CLINICAL INFORMATION: R91.1 PULMONARY NODULES. TECHNIQUE: Axial CT images were obtained through the chest after Omnipaque 350 100 cc IV contrast. Sagittal and coronal reformatted images. All CT scans at this location are performed using CT dose reduction for A TYRESE by means of automated exposure control. COMPARISON: 07/27/2018 FINDINGS: HEART: No significant abnormality. THORACIC AORTA: The thoracic aorta remains mildly ectatic with scattered calcifications. The ascendin g aorta is mildly dilated measuring 4.1 cm which is unchanged. No dissection. MEDIASTINUM and RENATE: No significant abnormality. LUNGS: No underlying parenchymal lung disease is appreciated. Scattered bilateral pulmonary nodules are again noted and appear unchanged in size and number since 07/27/2018. The largest nodule in the la teral right lower lobe measures 10 mm and demonstrates mildly spiculated borders which is unchanged. 5 mm round soft tissue nodule in the posterior right upper lobe is stable. Scattered tiny subpleural nodules in both lungs and biapical scarring are also stable. No new nodule is appreciated. PLEURA: No significant pleural effusion. No pneumothorax. SKELETAL SYSTEM: Mild osteopenia and degenerative changes in the spine. No suspicious bony lesion. UPPER ABDOMEN: Multiple small liver cysts are again noted. A 2 mm calyceal stone is noted in the infe rior left kidney. ADDITIONAL FINDINGS: 1 cm cyst is noted in the thyroid isthmus. IMPRESSION: No significant change in the bilateral pulmonary nodules and biapical scarring since 07/27/2018. Papa nued surveillance is recommended. Signer Name: Collins Kapadia Jr, MD Signed: 01/02/2019 10:40 AM Workstation Name: [id number]
== END 2019-01-02 06:54 | disposition home or self-care (01) ==
LOC: CT 06:53
PROVIDERS: ATTEND Internal Medicine Critical Care Medicine
DX: R91.1 Solitary pulmonary nodule (principal); M85.80 Other specified disorders of bone density and structure, unspecified site; K21.9 Gastro-esophageal reflux disease without esophagitis; I10 Essential (primary) hypertension; J45.909 Unspecified asthma, uncomplicated
CPT/HCPCS: 36415; 71260; 82565; 84520; Q9967